=== PATIENT | male | born 1960 | race Caucasian/White ===

== ENCOUNTER 2017-11-14 08:57 | Observation (INO) | payer BC ==
[2017-11-12 17:19] LABS: BASOPHILS # (AUTO) 0.1 (0.0-0.1); BASOPHILS % 0.8 % (0.0-1.0); EOSINOPHILS # (AUTO) 0.1 (0.0-0.4); EOSINOPHILS % 0.7 % (0.0-6.0); HEMATOCRIT 44.4 % (38.2-49.6); HEMOGLOBIN 15.9 g/dL (14.0-18.0); LYMPHOCYTES % 22.8 % (18.0-39.1); MEAN CORPUSCULAR HEMOGLOBIN 32.7 pg (28-32); MEAN CORPUSCULAR HGB CONC 35.8 g/dL (31-35); MEAN CORPUSCULAR VOLUME 91.4 fL (81-99); MONOCYTES # (AUTO) 0.7 (0.2-0.8); MONOCYTES % 7.7 % (4.4-11.3); NEUTROPHILS # (AUTO) 6.1 (2.1-6.9); NEUTROPHILS % 67.8 % (38.7-80.0); PLATELET COUNT 280 x10e3/uL (140-360); RED BLOOD COUNT 4.86 x10e6/uL (4.3-5.7); RED CELL DISTRIBUTION WIDTH 12.6 % (11.7-14.4)
[2017-11-12 17:30] LABS: INR 1.28
[2017-11-12 17:31] LABS: PARTIAL THROMBOPLASTIN TIME 33.4 seconds (23.8-35.5)
[2017-11-12 17:51] LABS: ANION GAP 14.4 mmol/L (8-16); BLOOD UREA NITROGEN 9 mg/dL (7-26); BUN/CREATININE RATIO 11 (6-25); CALCIUM 10.3 mg/dL (8.4-10.2); CARBON DIOXIDE 26 mmol/L (22-29); CHLORIDE 98 mmol/L (98-107); CREATININE, SERUM 0.84 mg/dL (0.72-1.25); EST GLOMERULAR FILTRATION RATE > 60 ML/MIN (60-); GLUCOSE 99 mg/dL (74-118); POTASSIUM 3.4 mmol/L (3.5-5.1); SODIUM 135 mmol/L (136-145)
--- NOTE | 2017-11-13 14:57 | Diagnostic Imaging Report ---
PROCEDURE: Frontal and lateral views of the chest. COMPARISON: None. INDICATIONS: pre-op FINDINGS: Lines/tubes: Left chest wall pacemaker device with leads in the expected positions Lungs: Mild apical scarring, right greater than left. There is no evidence of pneumonia or pulmonary edema. Pleura: There is no pleural effusion or pneumothorax. Heart and mediastinum: The heart and the mediastinum are normal. Bones: No acute bony abnormality. IMPRESSION: 1. No acute cardiopulmonary disease. Dictated by: Royce Aguilar M.D. on 11/13/2017 at 15:03 Electronically approved by: Royce Aguilar M.D. on 11/13/2017 at 15:03
[~2017-11-14] VITALS: Ht 180.3 cm; Wt 83.9 kg
[~2017-11-14 08:57] MED LIST: ACETAMINOPHEN 1000 MG/100 ML 100 ML IV ONE; BACITRACIN 50,000 UNIT VIAL ONE; BUPIVACAINE 0.5%/EPI 30 ML SDV INJ ONE; HYDROCHLOROTHIA25 MG PO; LIDOCAINE HCL (LTA) 4 ML SOLN ONE; LORAZEPAM1 MG PO; MULTAQ 400MG T400 MG PO; THROMBIN FOR SOLN 5,000 UNIT VIAL ONE; XARELTO20 MG PO
[2017-11-14] MEDS ORDERED: CEFAZOLIN SOD 1 GM VIAL ONE (10:17)
[2017-11-14] MEDS ORDERED: DEXAMETHASONE4 MG PO (10:21)
[2017-11-14] MEDS ORDERED: DEXAMETHASONE SOD PHOS INJ 4 MG/ML VIAL ONE (13:34)
[2017-11-14] MEDS ORDERED: NEOSTIGMINE 5 MG/5ML SYR ONE (13:34)
[2017-11-14] MEDS ORDERED: SEVOFLURANE INHAL SOLN 250 ML PEN BTL ONE (13:34)
[2017-11-14] MEDS ORDERED: GLYCOPYRROLATE INJ 1MG/ 5 ML SYR ONE (13:34)
[2017-11-14] MEDS ORDERED: LIDOCAINE HCL 2% LOCAL INJ 5 ML SDV VIAL INJ ONE (13:34)
[2017-11-14] MEDS ORDERED: PROPOFOL IV EMULSION 10 MG/ML 20 ML VIAL ONE (13:34)
[2017-11-14] MEDS ORDERED: ROCURONIUM BROMIDE 10 MG/ML 5ML VIAL ONE (13:34)
[2017-11-14] MEDS ORDERED: ONDANSETRON HCL INJ 2 MG/ML VIAL ONE (13:34)
[2017-11-14] MEDS ORDERED: LACTATED RINGER'S 1,000 ML IV SCH (13:42)
[2017-11-14] MEDS ORDERED: ACETAMINOPHEN 325 MG TAB PO PRN (13:45)
[2017-11-14] MEDS ORDERED: CEPACOL SORE THROAT LOZENGES PO PRN (13:45)
[2017-11-14] MEDS ORDERED: CARISOPRODOL 350 MG TAB PO PRN (13:45)
[2017-11-14] MEDS ORDERED: ONDANSETRON HCL INJ 2 MG/ML VIAL IV PRN (13:45)
[2017-11-14] MEDS ORDERED: HYDROMORPHONE 2MG/ML 2 MG/ML ML IV PRN (13:45)
[2017-11-14] MEDS ORDERED: MORPHINE SULFATE 5 MG/ML VIAL IM PRN (13:45)
[2017-11-14] MEDS ORDERED: MAGNESIUM/ALUMINUM/SIMETHICONE 30 ML UDC PO PRN (13:45)
[2017-11-14] MEDS ORDERED: PROMETHAZINE HCL (IM) 25 MG/ML VIAL IM PRN (13:45)
[2017-11-14] MEDS ORDERED: HYDROMORPHONE 1MG/1ML INJ ONE (13:56)
[2017-11-14] MEDS ORDERED: CEFAZOLIN SOD 1 GM/D5W 50ML 50 ML IV SCH (14:00)
[2017-11-14] MEDS ORDERED: KETOROLAC TROMETHAMINE 30 MG/ML VIAL ONE (14:16)
[2017-11-14] MEDS ORDERED: MIDAZOLAM HCL 2 MG/2 ML VIAL ONE (14:22)
[2017-11-14] MEDS ORDERED: FENTANYL CITRATE/PF 100MCG/2 ML INJ ONE (14:22)
[2017-11-14 14:45] VITALS: BP 143/67
[2017-11-14 14:58] VITALS: BP 143/67
--- NOTE | 2017-11-14 15:07 | Operative Report ---
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 POSTOPERATIVE DIAGNOSIS: C4-5 and C5-6 spondylosis with myelopathy, M50.020. PROCEDURES: 1. C4-5 anterior cervical diskectomy and microsurgical osteophyte resection with allograft fusion, 86629. 2. C5-6 anterior cervical diskectomy and microsurgical osteophyte resection with allograft fusion [id number]. 3. Preparation of iliac crest tricortical allograft, 34260. 4. C4-5 and C5-6 anterior cervical plating with Synthes ZPN plate, C4-5 and C5-6 anterior cervical plating with Synthes CSLP plate, [id number]. ANESTHESIA: General. INDICATIONS: The patient is a 57-year-old man who presents with numbness in the upper and lower extremities after a cord contusion in the setting of severe spinal stenosis at C4-5 and C5-6. He was taken to the operating room for a 2-level anterior cervical decompression and fusion. PROCEDURE: After the induction of general anesthesia, the patient was placed on the operating table in the supine position. The right side of the neck was prepped and draped in sterile fashion. The fluoroscopic C-arm was positioned in cross-table lateral orientation. A transverse incision was created on the right side of the neck superimposed on the C5 vertebral body as determined by fluoroscopy. The platysma was divided in line with the incision. A subplatysmal dissection was carried out. An avascular plane of dissection was developed medial to the sternocleidomastoid muscle. It was followed medial to the carotid sheath to the anterior border of the cervical spine. The deep cervical fascia was opened. The esophagus was retracted to the left. The attachments of longus coli muscles to the anterolateral aspects of vertebral bodies of C4, C5 and C6 were divided. The anterior longitudinal ligament was resected. Homer posts were inserted into C4 and C6, and the Homer distractor was used to distract both disk spaces simultaneously. The anterior annuli of the disks were incised with a number 11 blade, and the contents of both disks were thoroughly evacuated with angled curets and pituitary rongeurs. The posterior osteophytes were meticulously drilled with a 2 mm cutting bur until they were completely removed. The posterior annulus of the disk, herniated disk material, and the posterior longitudinal ligament were resected layer by layer until the dura was fully exposed and decompressed. At C5-6, a large osteophyte was drilled out at this process to decompress the dura. The medial aspects of the uncinate processes were then resected bilaterally at both levels, and the origins of the corresponding nerve roots were exposed. After satisfactory decompression had been achieved, the endplates were prepared for fusion. Two pieces of tricortical iliac crest allograft were cut to the sizes and shapes of the disk spaces and were inserted into the disk spaces under distraction of fluoroscopic guidance. The distraction was released, and the distraction posts were removed. A Synthes CSLP variable type anterior cervical plate was selected and was affixed to vertebral bodies of C4, C5 and C6 with 3 pairs of 14 x 4.35 mm screws. All screw holes were drilled and tapped under lateral fluoroscopic guidance. All screws were locked with the appropriate locking screws. An excellent construct was obtained. The wound was copiously irrigated with Bacitracin solution. Meticulous hemostasis was secured. The retractor was removed. The platysma was closed with 3-0 Vicryl sutures. The skin was closed with 4-0 Monocryl sutures in subcuticular fashion. Steri-Strips and a dressing were applied. The patient was awakened, extubated, and taken to the postanesthesia care unit in stable condition. No intraoperative complications were encountered. Estimated blood loss was 30 mL. Job#: [id number] TIMUR
[2017-11-14 16:00] VITALS: BP 143/67
[2017-11-14] MEDS: DEXAMETHASONE 4 MG TAB PO SCH (17:58)
[2017-11-14] MEDS: LORAZEPAM 1 MG TAB PO SCH (17:58)
[2017-11-14] MEDS: OXYCODONE/ACETAMINOPHEN 5-325 1 EACH TABLET PO PRN (18:09)
[2017-11-14] MEDS: CEFAZOLIN SOD 1 GM VIAL IV SCH (18:09)
[2017-11-14 20:30] VITALS: BP 113/73
[2017-11-14] MEDS ORDERED: HYDROCHLOROTHIAZIDE 25 MG TAB PO SCH (21:00)
[2017-11-14] MEDS ORDERED: ZOLPIDEM TARTRATE 5 MG TAB PO PRN (21:00)
[2017-11-14 21:37] VITALS: BP 113/73
[2017-11-15 00:09] VITALS: BP 118/61
[2017-11-15] MEDS: CEFAZOLIN SOD 1 GM VIAL IV SCH ×2 (02:45→10:00)
[2017-11-15 05:11] VITALS: BP 114/64
[2017-11-15] MEDS: OXYCODONE/ACETAMINOPHEN 5-325 1 EACH TABLET PO PRN (06:23)
[2017-11-15 08:05] VITALS: BP 122/65
[2017-11-15 08:27] VITALS: BP 122/65
--- NOTE | 2017-11-15 09:39 | Diagnostic Imaging Report ---
PROCEDURE: X-RAY CERVICAL SPINE, TWO VIEWS COMPARISON: None. INDICATIONS: STATUS POST CERVICAL SURGERY FINDINGS: C1 through C7 are visualized on the lateral view. Mild reversal of the cervical lordosis may be related muscle spasm or positioning. Re-demonstration of status post anterior fusion of C4-C6 with metallic plate and transfixing screws which are intact and in adequate alignment. Disc space narrowing at C6-C7. The prevertebral soft tissues are prominent. CONCLUSION: 1. Status post anterior fusion of C4-C6 with intact hardware and adequate alignment. 2. Disc space narrowing at C6-C7. Eladio Tavares D.O. Dictated by: Eladio Tavares D.O. on 11/15/2017 at 7:52 Electronically approved by: Eladio Tavaers D.O. on 11/15/2017 at 7:52
[2017-11-15] MEDS: LORAZEPAM 1 MG TAB PO SCH ×2 (10:00→10:30)
[2017-11-15] MEDS: DEXAMETHASONE 4 MG TAB PO SCH ×2 (10:00→10:30)
[2017-11-15 12:00] VITALS: BP 138/62
[2017-11-15] MEDS ORDERED: NORCO 7.5-3251 EACH PO (14:17)
== END 2017-11-15 14:57 | disposition home or self-care (01) ==
LOC: OR 08:57 → PACU V 13:44 → MED/SURG 14:47
PROVIDERS: ADMIT Neurological Surgery; ATTEND Neurological Surgery
DX: M50.021 Cervical disc disorder at C4-C5 level with myelopathy (principal); I48.91 Unspecified atrial fibrillation; Z79.01 Long term (current) use of anticoagulants; Z95.0 Presence of cardiac pacemaker; M47.12 Other spondylosis with myelopathy, cervical region
CPT/HCPCS: 20931; 22551; 22552; 22845; 36415; 71046; 72040; 77003; 80048; 85025; 85610; 85730; 86850; 86900; 88304; 96376; C1713 ×4; C1763; G0378 ×2; J0690 ×2; J1100; J1170; J1885; J2001; J2250; J2405; J3490; J7120

== ENCOUNTER 2017-12-25 09:51 | Outpatient (RCR) | payer BC ==
[~2017-12-25 09:51] MED LIST changes: -ACETAMINOPHEN 1000 MG/100 ML 100 ML IV ONE; -BACITRACIN 50,000 UNIT VIAL ONE; -BUPIVACAINE 0.5%/EPI 30 ML SDV INJ ONE; +DEXAMETHASONE4 MG PO; -LIDOCAINE HCL (LTA) 4 ML SOLN ONE; +NORCO 7.5-3251 EACH PO; -THROMBIN FOR SOLN 5,000 UNIT VIAL ONE
== END 2017-12-29 ==
LOC: OT 09:51
PROVIDERS: ATTEND Neurological Surgery
DX: M50.020 Cervical disc disorder with myelopathy, mid-cervical region, unspecified level (principal); M25.512 Pain in left shoulder; M25.612 Stiffness of left shoulder, not elsewhere classified; M25.542 Pain in joints of left hand; M79.642 Pain in left hand; R53.1 Weakness; R27.9 Unspecified lack of coordination

== ENCOUNTER → 2018-01-29 | Outpatient (RCR) | payer BC | LOC: OT 12-31 08:02 → PT 14:48 | PROVIDERS: ATTEND Neurological Surgery | DX: M50.020 Cervical disc disorder with myelopathy, mid-cervical region, unspecified level (principal); M25.512 Pain in left shoulder; M79.642 Pain in left hand; M25.612 Stiffness of left shoulder, not elsewhere classified; M25.642 Stiffness of left hand, not elsewhere classified; R53.1 Weakness; R27.9 Unspecified lack of coordination | CPT/HCPCS: 97139 ==

== ENCOUNTER 2018-02-27 10:46 | Outpatient (RCR) | payer BC | END 2018-02-28 | LOC: OT 10:46 | PROVIDERS: ATTEND Neurological Surgery | DX: M50.020 Cervical disc disorder with myelopathy, mid-cervical region, unspecified level (principal); M25.651 Stiffness of right hip, not elsewhere classified; M25.661 Stiffness of right knee, not elsewhere classified; M62.81 Muscle weakness (generalized); R26.9 Unspecified abnormalities of gait and mobility | CPT/HCPCS: 97139 ==

== ENCOUNTER 2018-03-28 10:51 | Outpatient (RCR) | payer BC | END 2018-03-31 | LOC: OT 10:51 | PROVIDERS: ATTEND Neurological Surgery | DX: M50.020 Cervical disc disorder with myelopathy, mid-cervical region, unspecified level (principal); M62.81 Muscle weakness (generalized); M25.651 Stiffness of right hip, not elsewhere classified; M25.661 Stiffness of right knee, not elsewhere classified; R26.9 Unspecified abnormalities of gait and mobility ==

== ENCOUNTER 2018-04-02 11:10 | Outpatient (RCR) | payer BC ==
[2018-04-09] MEDS ORDERED: GRALISE600 MG PO (12:02)
== END 2018-05-01 ==
LOC: OT 11:10
PROVIDERS: ATTEND Neurological Surgery
DX: M50.020 Cervical disc disorder with myelopathy, mid-cervical region, unspecified level (principal)

== ENCOUNTER → 2018-04-10 | Day surgery (SDC) | payer BC ==
[2018-04-09 12:21] LABS: INR 0.88; PROTHROMBIN TIME 12.8 seconds (11.9-14.5)
[2018-04-09 12:37] LABS: ANION GAP 14.4 mmol/L (8-16); BLOOD UREA NITROGEN 15 mg/dL (7-26); BUN/CREATININE RATIO 16 (6-25); CALCIUM 9.6 mg/dL (8.4-10.2); CARBON DIOXIDE 27 mmol/L (22-29); CHLORIDE 100 mmol/L (98-107); CREATININE, SERUM 0.95 mg/dL (0.72-1.25); EST GLOMERULAR FILTRATION RATE > 60 ML/MIN (60-); GLUCOSE 137 mg/dL (74-118); POTASSIUM 3.4 mmol/L (3.5-5.1); SODIUM 138 mmol/L (136-145)
[~2018-04-10] MED LIST changes: +BUPIVACAINE 0.25% 30ML SDV INJ ONE; +CEFAZOLIN SOD 1 GM/D5W 50ML 50 ML IV ONE; +DEXAMETHASONE SOD PHOS INJ 4 MG/ML VIAL ONE; +FENTANYL CITRATE/PF 100MCG/2 ML INJ ONE; +GRALISE600 MG PO; +HYDROCODONE/APAP 7.5MG-325MG 1 EA TAB ONE; +KETOROLAC TROMETHAMINE 30 MG/ML VIAL ONE; +LIDOCAINE HCL 2% LOCAL INJ 5 ML SDV VIAL INJ ONE; +MIDAZOLAM HCL 2 MG/2 ML VIAL ONE; +ONDANSETRON HCL INJ 2 MG/ML VIAL ONE; +PROPOFOL IV EMULSION 10 MG/ML 20 ML VIAL ONE; +SEVOFLURANE INHAL SOLN 250 ML PEN BTL ONE
--- OUTSIDE RECORDS SUMMARY | 2018-04-10 06:26 | XMS REPORT | Continuity of Care Document ---
Author Author Bonifacio villalobos [facility] Interface Address Unknown Phone Unavailable Problems Problem Status Onset Date Classification Date Reported Comments Source R52 PAIN, UNSPECIFIED/ PT HAS MEDTRONI Active 10/16/2017 [facility] Medications Medication Details Route Status Patient Instructions Ordering Provider Order Date Source Allergies, Adverse Reactions, Alerts Substance Category Reaction Severity Reaction type Status Date Reported Comments Source Immunizations Immunization Date Given Site Status Last Updated Comments Source Results Order Name Results Value Reference Range Date Interpretation Comments Source Brain wo contrast MRI Brain wo contrast MRI EXAM: MRI BRAIN WITHOUT CONTRAST DATE: 10/30/2017 11:00 AM CDT INDICATION: Pain, numbness from neck down. ADDITIONAL INFORMATION: None COMPARISON: None TECHNIQUE: Multiplanar, multisequence MRI of the brain without contrast. IV contrast: None. FINDINGS: There is no acute infarct. There is mild periventricular FLAIR signal hyperintensity. There is no mass, mass effect or midline shift. Partial empty sella is noted, nonspecific. The ventricles are normal in size. There is no abnormal extra-axial fluid collection or hemorrhage. The intracranial arterial and venous structures demonstrate normal flow voids. The visible paranasal sinuses and skull base are unremarkable. IMPRESSION: 1. No acute intracranial abnormality. 2. Mild periventricular small vessel ischemic changes. 10/30/2017 - - This report was dictated by a Mental Health Therapist/Fellow. I have personally reviewed the images as well as the Resident's interpretation and agree with the findings. Read by: Meseret Murguia MD Resident: Meseret Murguia MD Dictated Date/time: 10/30/17 14:13 Electronically Signed by: Louis Waterman MD 10/30/17 16:09 FINAL REPORT [facility] Spine cervical wo contrast MRI Spine cervical wo contrast MRI EXAM: Spine cervical wo contrast MRI DATE: 10/30/2017 11:00 AM CDT INDICATION: R52 Pain, unspecified - CERVICAL MRI COMPARISON: None TECHNIQUE: Multiplanar multisequence images of the cervical spine were obtained without contrast administration DISCUSSION: The height and the structure of the cervical vertebral bodies are well- maintained. No bone marrow signal abnormality. C2-C3: 4 mm central disc protrusion indenting the ventral cord with no cord signal abnormality. No foraminal narrowing. C3-C4: Concentric annular bulge effacing the anterior subarachnoid space narrowing of the neural foramen due to uncal arthropathy. C4-C5: Concentric annular bulge, posterior endplate spondylosis spondylosis and ligamentum flavum hypertrophy resulting in cord compression and canal stenosis with mean residual central canal diameter measuring 6 mm. Hyperintense T2 signal within the cord is present extending cranially up to C3. Bilateral foraminal narrowing due to uncal and facet arthropathy. C5-C6: Lateralizing to the right posterior endplate spondylosis and annular bulge with flattening of the right hemicord and ventral outlet of the right C6 nerve root sleeve. Narrowing of both neural foramen due to uncal arthropathy, right greater than left. C6-C7: Posterior endplate spondylosis and annular bulge. No cord compression or canal stenosis. Narrowing of both neural foramen due to uncal arthropathy. C7-T1: No canal or foraminal stenosis. IMPRESSION: Moderate to severe spinal canal stenosis at C4-C5 with compressive myelopathy. Mild to moderate spinal canal stenosis at C5-C6 without compressive myelopathy. Central disc protrusion at C2-C3 with ventral cord flattening. Flattening of the right hemicord and ventral outlet of the right C6 nerve root sleeve at C5-C6 with no compressive myelopathy. Narrowing of the C3-C4, C4-C5, C5-C6 and C6-C7 neural foramen by degenerative changes. 10/30/2017 - - Read by: Cindy Fabian MD Dictated Date/time: 10/30/17 13:48 Electronically Signed by: Cindy Fabian MD 10/30/17 13:57 FINAL REPORT [facility] Chest 2 views DX Chest 2 views DX EXAM: XR CHEST 2 VIEWS DATE: 10/30/2017 10:38 AM CDT INDICATION: PACEMAKER CLEARENCE - MRI [facility] COMPARISON: None. TECHNIQUE: PA and lateral chest radiographs FINDINGS: Lines, tubes and hardware: Left chest wall dual leads cardiac pacing device with leads terminates in the right ventricle. No complications. Lungs and pleura: Lungs are clear. Costophrenic sulci are sharp. Heart and mediastinum: normal. Bones: No acute bony abnormality is identified. IMPRESSION: 1. No acute cardiopulmonary abnormality. 2. Left chest wall dual leads cardiac pacing device with leads terminate in the right atrium and right ventricle. 10/30/2017 - - Read by: Baldemar Cwoan MD Dictated Date/time: 10/30/17 11:23 Electronically Signed by: Baldemar Cowan MD 10/30/17 11:26 FINAL REPORT [facility] Vital Signs Vital Sign Value Date Comments Source Encounters Location Location Details Encounter Type Encounter Number Reason For Visit Attending Provider ADM Date DC Date Status Source Procedures Procedure Code Date Perfomer Comments Source
[2018-04-10 10:30] VITALS: BP 114/67
--- NOTE | 2018-04-10 12:51 | Operative Report ---
DATE OF PROCEDURE: April 10, 2018 PREOPERATIVE DIAGNOSIS: Left carpal tunnel syndrome. POSTOPERATIVE DIAGNOSIS: Left carpal tunnel syndrome. PROCEDURE PERFORMED: Left carpal tunnel release. ANESTHESIA: General. INDICATIONS: The patient is a 57-year-old man who presents with left carpal tunnel syndrome. He was taken to the operating room for a left carpal tunnel release through a mini-open approach. PROCEDURE: After the induction of general anesthesia, the patient was placed on the operating table in supine position. The left arm was abducted over a hand table. The left hand, wrist and forearm were prepped and draped circumferentially in sterile fashion. A tourniquet was inflated over the upper arm to 250 mmHg. A small midline incision was created over the median palmar crease of the hand just distal to the distal flexor crease of the wrist. the transverse carpal ligament was identified and incised with a number 15C blade until the underlying median nerve came into view. As the physical therapist assistant retracted the skin edges, the transverse carpal ligament was then divided proximally and distally until the full length of the median nerve was exposed and decompressed within the carpal tunnel. The point of maximum compression of the nerve appeared to be 2 cm distal to the distal flexor crease of the wrist where the ligament was at its thickest. More distally, the recurrent motor branch of the nerve was preserved within its fat pad. The wound was copiously irrigated with Bacitracin solution. Hemostasis was secured. The subcutaneous layer was closed with a 3-0 Vicryl suture. The skin was closed with a 3-0 nylon suture in an interrupted fashion. A dressing was applied after the skin had been infiltrated with lidocaine. The hand was wrapped. The patient was awakened, extubated and taken to the postanesthesia care unit in stable condition. No intraoperative complications were encountered. Estimated blood loss was minimal. Job#: [id number] EV
== END | disposition home or self-care (01) ==
LOC: OR 06:24
PROVIDERS: ATTEND Neurological Surgery
DX: G56.02 Carpal tunnel syndrome, left upper limb (principal); I48.91 Unspecified atrial fibrillation; Z01.810 Encounter for preprocedural cardiovascular examination; Z01.812 Encounter for preprocedural laboratory examination; Z79.02 Long term (current) use of antithrombotics/antiplatelets; Z95.0 Presence of cardiac pacemaker
CPT/HCPCS: 36415; 64721; 80048; 85610; 85730; 93005; J0690; J1100; J1885; J2001; J2250; J2405; J2704

== ENCOUNTER 2023-07-29 09:55 | Outpatient (RCR) | payer MEDICARE ==
[~2023-07-29 09:55] MED LIST changes: -BUPIVACAINE 0.25% 30ML SDV INJ ONE; -CEFAZOLIN SOD 1 GM/D5W 50ML 50 ML IV ONE; -DEXAMETHASONE SOD PHOS INJ 4 MG/ML VIAL ONE; -FENTANYL CITRATE/PF 100MCG/2 ML INJ ONE; -HYDROCODONE/APAP 7.5MG-325MG 1 EA TAB ONE; -KETOROLAC TROMETHAMINE 30 MG/ML VIAL ONE; -LIDOCAINE HCL 2% LOCAL INJ 5 ML SDV VIAL INJ ONE; -MIDAZOLAM HCL 2 MG/2 ML VIAL ONE; -ONDANSETRON HCL INJ 2 MG/ML VIAL ONE; -PROPOFOL IV EMULSION 10 MG/ML 20 ML VIAL ONE; -SEVOFLURANE INHAL SOLN 250 ML PEN BTL ONE
== END 2023-07-30 ==
LOC: PT 09:55
PROVIDERS: ATTEND Orthopaedic Surgery Sports Medicine
DX: M17.11 Unilateral primary osteoarthritis, right knee (principal)

== ENCOUNTER → 2024-12-30 | Day surgery (SDC) | payer MEDICARE ==
[2024-12-28 10:41] LABS: BASOPHILS % 1.0 % (0.0-1.0); EOSINOPHILS % 2.6 % (0.0-6.0); LYMPHOCYTES % 27.3 % (18.0-39.1); MONOCYTES % 7.8 % (4.4-11.3); NEUTROPHILS % 61.0 % (38.7-80.0); RED CELL DISTRIBUTION WIDTH 13.2 % (11.7-14.4)
[~2024-12-30] MED LIST changes: +ASPIRIN81 MG PO; +DULOXETINE HCL60 MG PO; +FENTANYL CITRATE/PF 100MCG/2 ML INJ ONE; +HYOSCYAMINE SULFATE 0.5 MG/ML INJ ONE; +LIDOCAINE HCL 2% LOCAL INJ 5 ML SDV VIAL INJ ONE; +METOPROLOL SUCC50 MG PO; +PROPOFOL IV EMULSION 50 ML IV ONE
[2024-12-30] MEDS: LACTATED RINGER'S 1,000 ML ONE (11:22)
[2024-12-30 14:56] VITALS: TEMP 98.5
[2024-12-30 15:20] VITALS: BP 126/76; PULSE 60; RESP 18; O2SAT 99
== END | disposition home or self-care (01) ==
LOC: OR 11:04
PROVIDERS: ATTEND Internal Medicine Gastroenterology
DX: Z12.11 Encounter for screening for malignant neoplasm of colon (principal); K63.5 Polyp of colon; K57.30 Diverticulosis of large intestine without perforation or abscess without bleeding; K64.8 Other hemorrhoids; I10 Essential (primary) hypertension; I48.91 Unspecified atrial fibrillation; G62.9 Polyneuropathy, unspecified; G47.33 Obstructive sleep apnea (adult) (pediatric); Z95.0 Presence of cardiac pacemaker; Z68.31 Body mass index [BMI] 31.0-31.9, adult; Z79.82 Long term (current) use of aspirin; Z79.899 Other long term (current) drug therapy; Z01.810 Encounter for preprocedural cardiovascular examination; Z01.812 Encounter for preprocedural laboratory examination
CPT/HCPCS: 36415; 45385; 85025; 93005; J1980; J2003; J2704; J3010; J7121; 45378